=== PATIENT | male | born 1965 | race Caucasian/White ===

== ENCOUNTER → 2017-02-23 | Outpatient (CLI) | payer BC ==
--- NOTE | 2017-02-24 08:26 | XR ---
EXAMINATION TYPE: XR chest 2V DATE OF EXAM: 02/23/2017 3:24 PM COMPARISON: NONE TECHNIQUE: PA and lateral views submitted. HISTORY: Prostate cancer follow-up FINDINGS: The lungs are clear and there is no pneumothorax, pleural effusion, or focal pneumonia. Mild hypert rophic change of the spine IMPRESSION: 1. No acute process.
== END | disposition home or self-care (01) ==
LOC: RADXRYALE 15:11
PROVIDERS: ATTEND Urology
DX: C61 Malignant neoplasm of prostate (principal)
CPT/HCPCS: 71020

== ENCOUNTER → 2018-07-19 | Outpatient (CLI) | payer BC ==
--- NOTE | 2018-07-19 19:21 | US ---
EXAMINATION TYPE: US abdomen complete DATE OF EXAM: 07/19/2018 COMPARISON: NONE CLINICAL HISTORY: R93.5 Abn findings on imaging of abd region. lesion seen on liver and kidney, no sy mptoms EXAM MEASUREMENTS: Liver Length: 15.8 cm Gallbladder Wall: 0.3 cm CBD: 0.4 cm Spleen: 12.1 cm Right Kidney: 10.7 x 5.3 x 5.5 cm Left Kidney: 11.3 x 5.2 x 5.8 cm bowel gas limits study Pancreas: wnl Liver: intercostal imaging due to bowel gas, cystic areas seen, left lobe = 0.9cm, right posterior l obe = 1.7cm Gallbladder: wnl Evidence for sonographic Dozier's sign: no CBD: wnl Spleen: wnl Right Kidney: 1.8cm superior pole cyst, area sits so close to liver unable to officially determine i f cyst is on renal versus posterior liver Left Kidney: wnl Upper IVC: wnl Abd Aorta: wnl IMPRESSION: Hepatic and renal cysts. No evidence of renal obstruction. No gallstones or dilated ducts .
== END | disposition home or self-care (01) ==
LOC: RADUSMAIN 17:42
PROVIDERS: ATTEND Family Medicine
DX: K76.89 Other specified diseases of liver (principal); N28.1 Cyst of kidney, acquired
CPT/HCPCS: 76700

== ENCOUNTER → 2019-01-10 | Outpatient (CLI) | payer BC ==
--- NOTE | 2019-01-11 11:20 | XR ---
Right shoulder HISTORY: Right shoulder pain 3 views of the right shoulder Bone mineralization, joint spaces and alignment are maintained. Hypertrophic changes present at the a cromioclavicular joint. Right lung apex as visualized is normal. Distal acromion appears slightly brandt nturned. IMPRESSION: Acromioclavicular joint arthropathy, correlate for impingement. Shoulder MRI may be of be nefit.
== END | disposition home or self-care (01) ==
LOC: RADXRYALE 15:55
PROVIDERS: ATTEND Physician Assistant Medical
DX: M19.011 Primary osteoarthritis, right shoulder (principal)

== ENCOUNTER 2021-03-31 08:16 | Day surgery (SDC) | payer BC ==
[2021-03-27 09:04] VITALS: BMI 29.6
[~2021-03-31 08:16] MED LIST: LACTATED RINGERS 1,000 ML IV SCH
[2021-03-31 08:37] VITALS: TEMP 97.8
[2021-03-31] MEDS ORDERED: PROPOFOL 10 MG/ML 20 ML VIAL IV ONE (08:59)
[2021-03-31] MEDS ORDERED: LIDOCAINE 1% INJ 10MG/ML (20 ML MDV) ONE (08:59)
--- NOTE | 2021-03-31 09:30 | P.PCN ---
Date of Procedure: 03/31/21 Description of Procedure: BRIEF HISTORY: Patient is a 55-year-old male presenting for outpatient colonoscopy for history of colon polyps. Last colonoscopy 2016. No change in bowel habits, abdominal pain or family history of colon cancer. PROCEDURE PERFORMED: Colonoscopy with polypectomy. PREOPERATIVE DIAGNOSIS: Personal history of colon polyps, last colonoscopy 2015. ESTIMATED BLOOD LOSS: Minimal. IV sedation per Anesthesia. PROCEDURE: After informed consent was obtained, the patient, was brought into the endoscopy unit. IV sedation was administered by Anesthesia under continuous monitoring. Digital rectal examination was normal. Initially the Olympus CF-190 flexible video colonoscope was then inserted in the rectum, gradually advanced into the cecum without any difficulty. Careful examination was performed as the scope was gradually being withdrawn. Ileocecal valve and the appendiceal orifice were visualized and appeared normal. Prep was excellent. Mucosa of the cecum, ascending colon, transverse colon, descending colon, sigmoid colon, and rectum appeared normal. 2 diminutive rectal polyps one measuring 1 mm in size and one measuring 3 mm in size removed with cold forcep polypectomy. Retroflexion was performed in the rectum and no lesions were seen, grade internal hemorrhoids. The patient tolerated the procedure well. IMPRESSION: 2 diminutive polyps removed with cold forcep polypectomy from the rectum. Internal hemorrhoids. RECOMMENDATIONS: Findings of this examination were discussed with the patient and his family. Okay to resume diet. Okay to resume medications. Await pathology from polypectomies. If polyps are consistent with hyperplastic polyp can repeat endoscopy in 10 years, otherwise recommend 7 year interval.
[2021-03-31 09:38] VITALS: BP 119/80; PULSE 82; RESP 16
== END 2021-03-31 10:11 | disposition home or self-care (01) ==
LOC: ORWHC2ENDO 08:16
PROVIDERS: ATTEND Internal Medicine
DX: Z12.11 Encounter for screening for malignant neoplasm of colon (principal); K62.1 Rectal polyp; K64.8 Other hemorrhoids; Z79.1 Long term (current) use of non-steroidal anti-inflammatories (NSAID); Z79.899 Other long term (current) drug therapy; Z90.89 Acquired absence of other organs; Z98.890 Other specified postprocedural states; E78.5 Hyperlipidemia, unspecified; K21.9 Gastro-esophageal reflux disease without esophagitis; M19.90 Unspecified osteoarthritis, unspecified site; Z97.2 Presence of dental prosthetic device (complete) (partial)
CPT/HCPCS: 88305; 45380; J2001; J2704

== ENCOUNTER 2021-12-10 08:48 | Day surgery (SDC) | payer BC ==
[2021-12-08 15:38] VITALS: BMI 29.6
[2021-12-10 09:36] VITALS: RESP 16; TEMP 97.7
[2021-12-10] MEDS ORDERED: LIDOCAINE 1% (10MG/ML) FOR IV START INTRADERMA ONE (09:41)
[2021-12-10] MEDS ORDERED: PROPOFOL 10 MG/ML 20 ML VIAL IV ONE (09:47)
[2021-12-10] MEDS ORDERED: LIDOCAINE 1% INJ 10MG/ML (20 ML MDV) ONE (09:47)
--- NOTE | 2021-12-10 09:51 | P.GSHP ---
History of Present Illness H&P Date: 12/10/21 Chief Complaint: GERD Is a 56 room male presents today for EGD. He's had issues with GERD. Past Medical History Past Medical History: Cancer, GERD/Reflux, Hyperlipidemia Additional Past Medical History / Comment(s): hx prostate cancer History of Any Multi-Drug Resistant Organisms: None Reported Past Surgical History: Appendectomy, Hernia Repair, Prostate Surgery Additional Past Surgical History / Comment(s): PROSTATECTOMY Past Anesthesia/Blood Transfusion Reactions: No Reported Reaction Past Psychological History: No Psychological Hx Reported Smoking Status: Former smoker Past Alcohol Use History: Occasional Past Drug Use History: None Reported - Past Family History Mother Family Medical History: Cancer Additional Family Medical History / Comment(s): CA: bladder Father Family Medical History: No Reported History Additional Family Medical History / Comment(s): passed after accident in 1984 Medications and Allergies Home Medications Medication Instructions Recorded Confirmed Type Fenofibrate [Tricor] 160 mg PO DAILY 01/29/16 12/10/21 History Pravastatin Sodium 80 mg PO DAILY 03/27/21 12/10/21 History Allergies Allergy/AdvReac Type Severity Reaction Status Date / Time No Known Allergies Allergy Verified 12/10/21 09:34 Surgical - Exam Vital Signs Temp Pulse Resp BP Pulse Ox 97.7 F 74 16 147/95 94 L 12/10/21 09:33 12/10/21 09:33 12/10/21 09:33 12/10/21 09:33 12/10/21 09:33 - General well developed, well nourished, no distress - Eyes PERRL - ENT normal pinna - Neck no masses - Respiratory normal expansion - Cardiovascular Rhythm: regular - Abdomen Abdomen: soft Assessment and Plan Assessment: GERD. We'll perform EGD.
--- NOTE | 2021-12-10 09:59 | P.OP ---
Date of Procedure: 12/10/21 Preoperative Diagnosis: GERD Postoperative Diagnosis: Mild antral gastritis Small sliding hiatal hernia Procedure(s) Performed: EGD Anesthesia: MAC Surgeon: Imer Gutierres Pathology: other (Antrum) Condition: stable Disposition: PACU Description of Procedure: Patient's placed on the endoscopy table in the lateral position. He received IV sedation. The gastroscope placed oropharynx passed in the esophagus and stomach. Scope was then placed through the pylorus. First and second portion of the duodenum appeared minimally inflamed. A biopsies performed.. Scope was then brought back the antrum this. Mildly inflamed. The scope was then retroflexed and the remainder the stomach appeared normal. The GE junction was at 47 is. The patient had a small sliding hiatal hernia. The distal esophagus appeared minimally inflamed. Biopsies performed. The proximal esophagus appeared normal. Scope was withdrawn for patient. The patient is minimal findings of GERD. Patient was scheduled for a HIDA scan to evaluate for possible biliary dysfunction.
[2021-12-10 10:17] VITALS: BP 130/83; PULSE 71
--- NOTE | 2021-12-10 12:57 | NM ---
EXAMINATION TYPE: NM hepatobiliary w CCK DATE OF EXAM: 12/10/2021 COMPARISON: Ultrasound abdomen 07/19/2018 HISTORY: Indigestion TECHNIQUE: After the intravenous administration of 4.94 mCi Tc 99m Mebrofenin hepatobiliary scintigra phy is performed. Immediate images post injection. FINDINGS: There is satisfactory initial accumulation of tracer by the liver. The gallbladder is visualized on initial image. The small bowel activity is noted within 8 minutes. At one hour CCK was administered , patient was injected with 2.25 mcg of Kinevac, and gallbladder ejection fraction is calculated at 9 2 %, above the upper limit of the normal range. Therefore there is no scintigraphic evidence of cyst ic or common bile duct obstruction to suggest acute cholecystitis or gallbladder dyskinesia. IMPRESSION: Findings could represent hyperdynamic gallbladder
== END 2021-12-10 10:35 | disposition home or self-care (01) ==
LOC: ORWHC2ENDO 08:48
PROVIDERS: ATTEND Surgery
DX: K21.00 Gastro-esophageal reflux disease with esophagitis, without bleeding (principal); K29.70 Gastritis, unspecified, without bleeding; K44.9 Diaphragmatic hernia without obstruction or gangrene; E78.5 Hyperlipidemia, unspecified; Z85.46 Personal history of malignant neoplasm of prostate; Z98.890 Other specified postprocedural states; Z90.49 Acquired absence of other specified parts of digestive tract; Z90.79 Acquired absence of other genital organ(s); Z87.891 Personal history of nicotine dependence; Z80.52 Family history of malignant neoplasm of bladder; Z79.899 Other long term (current) drug therapy
CPT/HCPCS: 88305; 78227; 43239; A9537; J2805; J2001; J2704

== ENCOUNTER 2021-12-25 07:22 | Day surgery (SDC) | payer BC ==
[2021-12-22 13:31] VITALS: BMI 29.6
[~2021-12-25 07:22] MED LIST changes: +ACETAMINOPHEN TAB 500 MG TAB PO PRN; +DEXAMETHASONE SOD PHOSPHATE 4 MG/ML 1 ML VIAL IV ONE; +HEPARIN SODIUM,PORCINE/PF 5,000 UNIT/0.5 ML SYRINGE SQ PRN; +LIDOCAINE 1% (10MG/ML) FOR IV START INTRADERMA PRN; +MIDAZOLAM 2 MG/2 ML VIAL IV PRN; +ONDANSETRON 4 MG/2 ML VIAL IVP ONE
--- NOTE | 2021-12-25 08:54 | P.GSHP ---
History of Present Illness H&P Date: 12/25/21 Chief Complaint: Right upper quadrant pain This is a 56-year-old male who second with right quadrant pain. His recent HIDA scan shows evidence of a hyperdynamic gallbladder. Patient is in today for laparoscopic cholecystectomy. Past Medical History Past Medical History: Cancer, GERD/Reflux, Hyperlipidemia Additional Past Medical History / Comment(s): hx prostate cancer History of Any Multi-Drug Resistant Organisms: None Reported Past Surgical History: Appendectomy, Hernia Repair, Prostate Surgery Additional Past Surgical History / Comment(s): PROSTATECTOMY. EGD-12/10/21 Past Anesthesia/Blood Transfusion Reactions: No Reported Reaction Smoking Status: Former smoker - Past Family History Mother Family Medical History: Cancer Additional Family Medical History / Comment(s): CA: bladder Father Family Medical History: No Reported History Additional Family Medical History / Comment(s): passed after accident in 1984 Medications and Allergies Home Medications Medication Instructions Recorded Confirmed Type Fenofibrate [Tricor] 160 mg PO DAILY 01/29/16 12/25/21 History Pravastatin Sodium 80 mg PO DAILY 03/27/21 12/25/21 History DULoxetine HCL [Cymbalta] 30 mg PO HS 12/22/21 12/25/21 History DULoxetine HCL [Cymbalta] 60 mg PO DAILY 12/22/21 12/25/21 History Ergocalciferol [Vitamin D2 (1250 1,250 mcg PO MARINELLI 12/22/21 12/25/21 History Mcg = [id number] Iu)] Allergies Allergy/AdvReac Type Severity Reaction Status Date / Time No Known Allergies Allergy Verified 12/25/21 07:45 Surgical - Exam Vital Signs Temp Pulse Resp BP Pulse Ox 98 F 91 16 148/93 94 L 12/25/21 07:42 12/25/21 07:42 12/25/21 07:42 12/25/21 07:42 12/25/21 07:42 - General well developed, well nourished, no distress - Eyes PERRL - ENT normal pinna - Neck no masses - Respiratory normal expansion - Cardiovascular Rhythm: regular - Abdomen Abdomen: soft, non tender Assessment and Plan Assessment: Right upper quadrant pain Chronic cholecystitis Hyperdynamic gallbladder We'll perform laparoscopic cholecystectomy
[2021-12-25] MEDS ORDERED: MIDAZOLAM 2 MG/2 ML VIAL ONE (09:01)
[2021-12-25] MEDS ORDERED: GLYCOPYRROLATE 0.2 MG/ML 2 ML VIAL ONE (09:01)
[2021-12-25] MEDS ORDERED: fentaNYL (PF) 50 MCG/ML 2 ML AMP ONE (09:01)
[2021-12-25] MEDS ORDERED: SUCCINYLCHOLINE CHLORIDE VIAL 200 MG/10 ML VIAL IV ONE (09:01)
[2021-12-25] MEDS ORDERED: PROPOFOL 10 MG/ML 20 ML VIAL IV ONE (09:01)
[2021-12-25] MEDS ORDERED: NEOSTIGMINE 1 MG/ML 10 ML VIAL ONE (09:01)
[2021-12-25] MEDS ORDERED: LIDOCAINE 1% INJ 10MG/ML (20 ML MDV) ONE (09:01)
[2021-12-25] MEDS ORDERED: KETAMINE 10 MG/ML 20 ML VIAL ONE (09:01)
[2021-12-25] MEDS ORDERED: ROCURONIUM 10 MG/ML (5 ML VIAL) IV ONE (09:01)
[2021-12-25] MEDS ORDERED: BUPIVACAIN-EPI 0.25%-1:200,000 30 ML VIAL SQ ONE ×2 (09:06→09:19)
[2021-12-25] MEDS: HYDROmorphone 0.5 MG/0.5 ML SYRINGE IVP PRN ×4 (09:43→10:26)
--- NOTE | 2021-12-25 09:44 | P.OP ---
Date of Procedure: 12/25/21 Preoperative Diagnosis: Chronic cholecystitis Postoperative Diagnosis: Chronic cholecystitis Procedure(s) Performed: Laparoscopic cholecystectomy Anesthesia: JULIANA Surgeon: Imer Gutierres Estimated Blood Loss (ml): 5 Pathology: other (Gallbladder) Condition: stable Disposition: PACU Description of Procedure: The patient was placed on the operating table. The patient received a general endotracheal tube anesthesia. The patients abdomen was prepped and draped in the usual sterile fashion. Through an infraumbilical stab incision, the fascia of the anterior abdominal wall was grasped with a pair of Kochers and then the Veress needle was placed in the peritoneal cavity. Position of the Veress needle was confirmed with positive drop test. The abdomen was then insufflated. After adequate insufflation, the 10 mm trocar was placed in the peritoneal cavity. Following this the laparoscope was placed in the peritoneal cavity. The patient was placed in the head-up, right side up position and then a 5 mm trocar was placed in the right lateral and right subcostal position under direct visualization. A 8 mm trocar was placed in the epigastric position. The gallbladder was grasped in the fundus and infundibulum. Traction on the gallbladder was placed in the lateral and the cephalad positions. The triangle of Calot was visualized.. The cystic duct was bluntly dissected until the union of the cystic duct and common bile duct was seen. A critical view of safety was achieved. The cystic duct was then divided and sealed with the Harmonic scissors. A PDS Endoloop was then placed throughout the cystic duct stump. The cystic artery divided and sealed with the Harmonic scissors. The gallbladder was then removed from the liver bed using Harmonic scissors. The gallbladder was then extracted through the epigastric port site. Operative field was checked for any bleeding spots and Harmonic scissors was used to coagulate the liver bed. The abdomen was irrigated. The trocars were removed. The skin was closed using interrupted 3-0 Vicryl suture. Dermabond dressing were applied. The patient tolerated the procedure well.
[2021-12-25 09:48] VITALS: TEMP 97.2
[2021-12-25] MEDS ORDERED: KETOROLAC 15 MG/ML 1 ML VIAL IVP ONE (10:15)
[2021-12-25] MEDS ORDERED: HYDROmorphone 0.5 MG/0.5 ML SYRINGE IVP ONE ×2 (11:10)
[2021-12-25 11:22] VITALS: RESP 16
[2021-12-25 12:14] VITALS: BP 120/82; PULSE 74
== END 2021-12-25 12:30 | disposition home or self-care (01) ==
LOC: OR 07:22
PROVIDERS: ATTEND Surgery
DX: K81.1 Chronic cholecystitis (principal); K21.9 Gastro-esophageal reflux disease without esophagitis; E78.5 Hyperlipidemia, unspecified; Z85.46 Personal history of malignant neoplasm of prostate; Z90.49 Acquired absence of other specified parts of digestive tract; Z90.79 Acquired absence of other genital organ(s); Z80.52 Family history of malignant neoplasm of bladder; Z87.891 Personal history of nicotine dependence; Z79.899 Other long term (current) drug therapy
CPT/HCPCS: 47562; 88304; J2250; J0330; J1100; J2710; J0690; J2405; J2001; J3010; J1885; J2704; J1170; J1644

== ENCOUNTER → 2022-03-18 | Outpatient (CLI) | payer BC ==
[2022-03-18 16:47] VITALS: BMI 30.3
== END ==
LOC: DBWHC3 14:56
PROVIDERS: ATTEND Physician Assistant Medical
DX: E11.9 Type 2 diabetes mellitus without complications (principal); Z87.891 Personal history of nicotine dependence
CPT/HCPCS: G0108 ×3

== ENCOUNTER → 2023-01-27 | Outpatient (CLI) | payer BC ==
--- NOTE | 2023-01-27 15:32 | XR ---
EXAMINATION TYPE: XR knee complete RT DATE OF EXAM: 01/27/2023 COMPARISON: NONE HISTORY: Pain TECHNIQUE: Three views are submitted. FINDINGS: Joint spaces are preserved. Osseous structures are intact. No acute fracture seen. There is a supr apatellar small bursal fluid collection. IMPRESSION: 1. No acute fracture or dislocation. Small suprapatellar bursal fluid collection can be associated w ith internal derangement knee. Correlate clinically.
== END | disposition home or self-care (01) ==
LOC: RADXRYALE 15:01
PROVIDERS: ATTEND Physician Assistant
DX: M25.561 Pain in right knee (principal)

== ENCOUNTER 2023-03-23 22:03 | Emergency (ER) | payer BC ==
[2023-03-23] MEDS ORDERED: HYDROmorphone 1 MG/ML 1 ML SYRINGE IVP STA (23:10)
--- NOTE | 2023-03-23 23:39 | ED ---
Fall HPI - General Chief Complaint: Fall Stated Complaint: Back Pain Source: patient, EMS Mode of arrival: EMS - History of Present Illness Initial Comments: 57-year-old with a history of back problems presents to the ED with chief complaint of right hip pain. She states that he was attempting to sit into a golf cart when his right leg straightened out. States that this caused him to be unable to properly sit into the golf cart and he rolled onto the ground. Denies any injury due to a fall however states that since his leg straightened out has had right hip pain that is worse than usual. Denies incontinence. Denies saddle anesthesia. Patient notes that he has an MRI scheduled for tomorrow due to known history of this. Denies chest pain or shortness of breath. No other complaints. - Related Data Home Medications Medication Instructions Recorded Confirmed Fenofibrate [Tricor] 160 mg PO DAILY 01/29/16 12/25/21 Pravastatin Sodium 80 mg PO DAILY 03/27/21 12/25/21 DULoxetine HCL [Cymbalta] 30 mg PO HS 12/22/21 12/25/21 DULoxetine HCL [Cymbalta] 60 mg PO DAILY 12/22/21 12/25/21 Ergocalciferol [Vitamin D2 (1250 1,250 mcg PO MARINELLI 12/22/21 12/25/21 Mcg = [id number] Iu)] Previous Rx's Medication Instructions Recorded Acetaminophen Tab [Tylenol] 650 mg PO Q6H #30 tab 12/25/21 Docusate [Colace] 100 mg PO BID #20 capsule 12/25/21 Ibuprofen [Motrin] 600 mg PO Q6HR PRN #40 tab 12/25/21 oxyCODONE HCL [OxyIR] 5 mg PO Q6H PRN 3 Days #10 tab 12/25/21 Lidocaine 5% Patch [Lidoderm 5% 1 patch TOPICAL DAILY #7 patch 03/24/23 Patch] methocarbamoL [Robaxin] 500 mg PO TID PRN #15 tab 03/24/23 Allergies Allergy/AdvReac Type Severity Reaction Status Date / Time No Known Allergies Allergy Verified 03/23/23 22:11 Review of Systems ROS Statement: Those systems with pertinent positive or pertinent negative responses have been documented in the HPI. ROS Other: All systems not noted in ROS Statement are negative. Past Medical History Past Medical History: Cancer, GERD/Reflux, Hyperlipidemia Additional Past Medical History / Comment(s): hx prostate cancer History of Any Multi-Drug Resistant Organisms: None Reported Past Surgical History: Appendectomy, Hernia Repair, Prostate Surgery Additional Past Surgical History / Comment(s): PROSTATECTOMY. EGD-12/10/21 Past Anesthesia/Blood Transfusion Reactions: No Reported Reaction Past Psychological History: No Psychological Hx Reported Smoking Status: Former smoker - Past Family History Mother Family Medical History: Cancer Additional Family Medical History / Comment(s): CA: bladder Father Family Medical History: No Reported History Additional Family Medical History / Comment(s): passed after accident in 1984 General Exam Limitations: no limitations General appearance: alert, in distress Head exam: Present: atraumatic Eye exam: Present: normal appearance ENT exam: Present: normal exam Neck exam: Present: other (No Midline cervical spinal tenderness to palpation) Respiratory exam: Present: normal lung sounds bilaterally Cardiovascular Exam: Present: regular rate, normal rhythm GI/Abdominal exam: Present: soft Extremities exam: Present: tenderness (Reducible pain to palpation of the right lateral hip and right lumbar paraspinal area.), other (Strength and sensation equal and intact in bilateral upper and lower extremities.) Back exam: Present: other (No midline thoracic or lumbar spinal tenderness to palpation. ) Neurological exam: Present: alert, oriented X3 Course Vital Signs 03/23/23 22:06 Temperature 97.8 F Pulse Rate 84 Respiratory 20 Rate Blood Pressure 141/88 O2 Sat by Pulse 98 Oximetry Medical Decision Making - Medical Decision Making Was pt. sent in by a medical professional or institution (, PA, RECEIVING CLERK, urgent care, hospital, or senior living...) When possible be specific @ -No Did you speak to anyone other than the patient for history (EMS, parent, family, police, friend...)? What history was obtained from this source @ -No Did you review nursing and triage notes (agree or disagree)? Why? @ -I reviewed and agree with nursing and triage notes Were old charts reviewed (outside hosp., previous admission, EMS record, old EKG, old radiological studies, urgent care reports/EKG's, senior living records)? Report findings @ -No old charts were reviewed Differential Diagnosis (chest pain, altered mental status, abdominal pain women, abdominal pain men, vaginal bleeding, weakness, fever, dyspnea, syncope, headache, dizziness, GI bleed, back pain, seizure, CVA, palpatations, mental health, musculoskeletal)? @ -Differential Back Pain: Strain, zoster, cauda equina syndrome, epidural abscess, vertebral osteomyelitis, discitis, fracture, subluxation, disc herniation, DJD, spinal stenosis, dissection, AAA, pancreatitis, peptic ulcer disease, pyelonephritis, kidney stone, this is not meant to be an all-inclusive list. EKG interpreted by me (3pts min.). @ -None X-rays interpreted by me (1pt min.). @ -None done CT interpreted by me (1pt min.). @ -None done U/S interpreted by me (1pt. min.). @ -None done What testing was considered but not performed or refused? (CT, X-rays, U/S, labs)? Why? @ -Imaging was considered however at this time patient has no alarming symptoms and denies any new injury. Additionally patient states that he has an MRI scheduled tomorrow. What meds were considered but not given or refused? Why? @ -None Did you discuss the management of the patient with other professionals (professionals i.e. , PA, RECEIVING CLERK, lab, RT, psych nurse, rn social services, induction coordination engineer, teacher, chief legal officer, pillowcase maker)? Give summary @ -No Was smoking cessation discussed for >3mins.? @ -No Was critical care preformed (if so, how long)? @ -No Were there social determinants of health that impacted care today? How? (Homelessness, low income, unemployed, alcoholism, drug addiction, transportation, low edu. Level, literacy, decrease access to med. care, custodial, rehab)? @ -No Was there de-escalation of care discussed even if they declined (Discuss DNR or withdrawal of care, Hospice)? DNR status @ -No What co-morbidities impacted this encounter? (DM, HTN, Smoking, COPD, CAD, Cancer, CVA, ARF, Chemo, Hep., AIDS, mental health diagnosis, sleep apnea, morbid obesity)? @ -None Was patient admitted / discharged? Hospital course, mention meds given and route, prescriptions, significant lab abnormalities, going to OR and other pertinent info. @ -Discharge. Patient had pain well controlled with Dilaudid. Additionally given Norflex and a lidocaine patch. Able to ambulate without significant difficulty. Advised to follow with orthopedics as scheduled. Patient discharged in stable condition. Discussed return precautions patient verbalized agreement. Undiagnosed new problem with uncertain prognosis? @ -No rug Therapy requiring intensive monitoring for toxicity (Heparin, Nitro, Insulin, Cardizem)? @ -No ere any procedures done? @ -No iagnosis/symptom? @ -Hip pain Acute, or Chronic, or Acute on Chronic? @ -Acute on chronic. Uncomplicated (without systemic symptoms) or Complicated (systemic symptoms)? @ -Uncomplicated Side effects of treatment? @ -No xacerbation, Progression, or Severe Exacerbation? @ -No oses a threat to life or bodily function? How? (Chest pain, USA, MS, pneumonia, PE, COPD, DKA, ARF, appy, cholecystitis, CVA, Diverticulitis, Homicidal, Suicidal, threat to staff... and all critical care pts) @ -No Disposition Clinical Impression: Hip pain Disposition: HOME SELF-CARE Condition: Good Prescriptions: Lidocaine 5% Patch [Lidoderm 5% Patch] 1 patch TOPICAL DAILY #7 patch methocarbamoL [Robaxin] 500 mg PO TID PRN #15 tab PRN Reason: muscle spasms Is patient prescribed a controlled substance at d/c from ED?: No Referrals: Rosey Castro PAC [Primary Care Provider] - 1-2 days Time of Disposition: 01:00
[2023-03-23] MEDS ORDERED: ORPHENADRINE 30 MG/ML 2 ML VIAL IVP STA (23:52)
[2023-03-24] MEDS ORDERED: LIDOCAINE 5% PATCH TOPICAL STA (00:35)
[2023-03-24 01:18] VITALS: BP 140/88; PULSE 85; RESP 18; TEMP 98.2
[2023-03-24] MEDS ORDERED: LIDOCAINE 5% PATCH TOPICAL SCH (09:00)
== END 2023-03-24 01:17 | disposition home or self-care (01) ==
LOC: EC 22:03
DX: M25.551 Pain in right hip (principal); K21.9 Gastro-esophageal reflux disease without esophagitis; E78.5 Hyperlipidemia, unspecified; Z87.891 Personal history of nicotine dependence; Z79.899 Other long term (current) drug therapy; W18.30XA Fall on same level, unspecified, initial encounter
CPT/HCPCS: 99284; 96374; 96375; J1170

== ENCOUNTER → 2023-04-11 | Outpatient (CLI) | payer BC ==
[2023-04-11 16:59] LABS: INR 0.9 (<1.2); Partial Thromboplastin Time 23.8 sec (22.0-30.0)
[2023-04-12 02:23] LABS: Basophils # (A) 0.06 X 10*3/uL (0.00-0.10); Basophils % (A) 0.8 %; Eosinophils % (A) 2.7 %; HCT 44.2 % (39.6-50.0); HGB 14.4 d/dL (12.0-15.0); Lymphocytes # (A) 1.92 X 10*3/uL (0.90-5.00); Lymphocytes % (A) 25.6 %; MCHC 32.6 d/dL (32.0-37.0); MCV 92.1 FL (80.0-97.0); Monocytes # (A) 0.63 X 10*3/uL (0.20-1.00); Monocytes % (A) 8.4 %; NRBC Per 100 WBC 0 X 10*3/uL (0.00-0.01); Neutrophils # (A) 4.64 X 10*3/uL (1.80-7.70); Neutrophils % (A) 61.8 %; Platelet Count 298 X 10*3/uL (140-440)
[2023-04-12 02:32] LABS: Calcium 10.2 mg/dL (8.7-10.3); Carbon Dioxide 25.8 mmol/L (21.6-31.8); Chloride 103 mmol/L (96-109); Glucose 94 mg/dL (70-110); Potassium 4.4 mmol/L (3.5-5.5); Sodium 141 mmol/L (135-145)
== END | disposition home or self-care (01) ==
LOC: LABWHC1 15:45
PROVIDERS: ATTEND Orthopaedic Surgery Orthopaedic Surgery of the Spine
DX: Z01.812 Encounter for preprocedural laboratory examination (principal); M48.061 Spinal stenosis, lumbar region without neurogenic claudication
CPT/HCPCS: 36415; 80048; 85025; 85610; 85730; 86850; 86900; 86901

== ENCOUNTER → 2023-04-15 | Outpatient (CLI) | payer BC ==
--- NOTE | 2023-04-15 13:01 | XR ---
EXAMINATION TYPE: XR chest 2V DATE OF EXAM: 04/15/2023 COMPARISON: 02/23/2017 TECHNIQUE: PA and lateral views submitted. HISTORY: Presurgical FINDINGS: The lungs are clear and there is no pneumothorax, pleural effusion, or focal pneumonia. Heart size normal and no overt failure. Osseous structures demonstrate hypertrophic and degenerative changes of the spine. Right-sided AC joint arthropathy. IMPRESSION: 1. No acute process.
== END | disposition home or self-care (01) ==
LOC: RADXRMAIN 12:25
PROVIDERS: ATTEND Orthopaedic Surgery Orthopaedic Surgery of the Spine
DX: Z01.818 Encounter for other preprocedural examination (principal)
CPT/HCPCS: 71046

== ENCOUNTER 2023-04-18 08:46 | Day surgery (SDC) | payer BC ==
[2023-04-11 16:59] LABS: INR 0.9 (<1.2); Partial Thromboplastin Time 23.8 sec (22.0-30.0)
[2023-04-12 02:23] LABS: Basophils # (A) 0.06 X 10*3/uL (0.00-0.10); Basophils % (A) 0.8 %; Eosinophils % (A) 2.7 %; HCT 44.2 % (39.6-50.0); HGB 14.4 d/dL (12.0-15.0); Lymphocytes # (A) 1.92 X 10*3/uL (0.90-5.00); Lymphocytes % (A) 25.6 %; MCHC 32.6 d/dL (32.0-37.0); MCV 92.1 FL (80.0-97.0); Monocytes # (A) 0.63 X 10*3/uL (0.20-1.00); Monocytes % (A) 8.4 %; NRBC Per 100 WBC 0 X 10*3/uL (0.00-0.01); Neutrophils # (A) 4.64 X 10*3/uL (1.80-7.70); Neutrophils % (A) 61.8 %; Platelet Count 298 X 10*3/uL (140-440)
[2023-04-12 02:32] LABS: Calcium 10.2 mg/dL (8.7-10.3); Carbon Dioxide 25.8 mmol/L (21.6-31.8); Chloride 103 mmol/L (96-109); Glucose 94 mg/dL (70-110); Potassium 4.4 mmol/L (3.5-5.5); Sodium 141 mmol/L (135-145)
[~2023-04-18 08:46] MED LIST changes: -ACETAMINOPHEN TAB 500 MG TAB PO PRN; -HEPARIN SODIUM,PORCINE/PF 5,000 UNIT/0.5 ML SYRINGE SQ PRN; +HYDROmorphone 0.5 MG/0.5 ML SYRINGE IVP PRN; -MIDAZOLAM 2 MG/2 ML VIAL IV PRN; +droPERidol 5 MG/2 ML VIAL IVP PRN
[2023-04-18] MEDS ORDERED: LACTATED RINGERS 400 ML IV ONE (09:13)
[2023-04-18 09:16] VITALS: TEMP 97
[2023-04-18] MEDS ORDERED: SUCCINYLCHOLINE CHLORIDE 200 MG/10 ML VIAL IV ONE (09:58)
[2023-04-18] MEDS ORDERED: HYDROmorphone (PF) 1 MG/ML ONE (09:58)
[2023-04-18] MEDS ORDERED: MIDAZOLAM 2 MG/2 ML VIAL ONE (09:58)
[2023-04-18] MEDS ORDERED: PROPOFOL 10 MG/ML 20 ML VIAL IV ONE (09:58)
[2023-04-18] MEDS ORDERED: PHENYLEPHRINE 10 MG/ML VIAL ONE (09:58)
[2023-04-18] MEDS ORDERED: fentaNYL (PF) 50 MCG/ML 2 ML AMP ONE (09:58)
[2023-04-18] MEDS ORDERED: NEOSTIGMINE 1 MG/ML 10 ML VIAL ONE (09:58)
[2023-04-18] MEDS ORDERED: LIDOCAINE 2% INJ 20 MG/ML (2 ML VIAL) ONE (09:58)
[2023-04-18] MEDS ORDERED: KETAMINE 10 MG/ML 20 ML VIAL ONE (09:58)
[2023-04-18] MEDS ORDERED: GLYCOPYRROLATE 0.2 MG/ML 2 ML VIAL ONE (09:58)
[2023-04-18] MEDS ORDERED: ROCURONIUM 10 MG/ML (5 ML VIAL) IV ONE (09:58)
[2023-04-18] MEDS ORDERED: BUPIVACAINE (PF) 0.25% 30 ML VIAL SQ ONE ×2 (10:01→10:32)
[2023-04-18] MEDS ORDERED: GELATIN SPONGE,ABSORB (SMALL) 1 EACH SPONGE TOPICAL ONE ×2 (10:01→10:34)
[2023-04-18] MEDS ORDERED: LIDOCAINE 2%-EPI 1:100,000 20 ML VIAL SQ ONE ×2 (10:02→10:32)
[2023-04-18] MEDS ORDERED: THROMBIN (BOVINE) 5,000 UNIT VIAL TOPICAL ONE ×2 (10:02→10:34)
[2023-04-18] MEDS ORDERED: SODIUM CHLORIDE 0.9% 100 ML BAG ONE (10:15)
[2023-04-18] MEDS ORDERED: ceFAZolin 1,000 MG VIAL ONE (10:15)
[2023-04-18] MEDS ORDERED: SODIUM CHLORIDE 0.9% 50 ML with ceFAZolin 2,000 MG IV ONE ×2 (10:15)
[2023-04-18] MEDS ORDERED: methylPREDNISolone ACETATE 40 MG/ML 1 ML VIAL MISCELLANE ONE ×2 (10:34→11:12)
[2023-04-18] MEDS ORDERED: LACTATED RINGERS 1,000 ML IV ONE (10:58)
--- NOTE | 2023-04-18 11:15 | FL ---
EXAMINATION TYPE: FL guidance operating room DATE OF EXAM: 04/18/2023 HISTORY: Fluoroscopy time Total dose area product (DAP) in uGy*m?, mGy*cm? (or similar): 0.2434 IMPRESSION: 1. Fluoroscopy time.
--- NOTE | 2023-04-18 11:17 | XR ---
EXAM TYPE: LUMBAR SPINE X RAY SERIES COMPARISON: NONE HISTORY: Intraoperative localization TECHNIQUE: 3 views are submitted. FINDINGS: Limited resolution views of the lower and mid lumbar spine demonstrate surgical instruments posterior to the vertebral column. There is a grade 1 anterior listhesis of the lowest lumbar segment. Multile jac degenerative disc disease. IMPRESSION: 1. See above
[2023-04-18] MEDS ORDERED: CYCLOBENZAPRINE 10 MG TAB PO PRN (11:32)
[2023-04-18] MEDS ORDERED: diazePAM 5 MG TAB PO PRN (11:32)
[2023-04-18] MEDS ORDERED: ACETAMINOPHEN TAB 500 MG TAB PO PRN (11:32)
[2023-04-18] MEDS ORDERED: HYDROcodone/APAP 5-325MG 1 EACH TAB PO PRN (11:32)
[2023-04-18] MEDS ORDERED: BENZOCAINE/MENTHOL LOZENG 1 EACH LOZENGE MUCOUS MEM PRN (11:32)
[2023-04-18] MEDS ORDERED: HYDROmorphone 1 MG/ML 1 ML SYRINGE IVP PRN (11:32)
[2023-04-18] MEDS ORDERED: KETOROLAC 15 MG/ML 1 ML VIAL IVP PRN (11:32)
[2023-04-18] MEDS ORDERED: ONDANSETRON 4 MG/2 ML VIAL IVP PRN (11:32)
--- NOTE | 2023-04-18 11:44 | P.OP ---
Date of Procedure: 04/18/23 Preoperative Diagnosis: Herniated nucleus pulposis L3 4, spinal stenosis L3 4, lower extremity radiculopathy, lower extremity weakness Postoperative Diagnosis: Same Anesthesia: GETA Pathology: none sent Condition: stable Disposition: PACU Description of Procedure: BRIEF OPERATIVE NOTE Preoperative Diagnosis:Herniated nucleus pulposis L3 4, spinal stenosis L3 4, lower extremity radiculopathy, lower extremity weakness Postoperative Diagnosis:Herniated nucleus pulposis L3 4, spinal stenosis L3 4, lower extremity radiculopathy, lower extremity weakness Procedure: Laminectomy and decompression L3 4 Discectomy for decompression L3 4 Partial medial facetectomy and foraminotomy L3 4 Use of fluoroscopic guidance Surgeon: Dr. Tuttle Infant Caregiver: Qasim Anthony is present throughout the entire the case persistence during positioning, dissection, exposure, visualization, and all crucial elements of the case as well as closure. Anesthesia: General anesthesia per Dr. Bynum Estimated blood loss:approximately 50 mL Complications: None apparent Components implanted: Disposition: To recovery room in good stable condition. OPERATIVE INDICATIONS The patient has been having issues in their lower back and lower extremities. He isn't having significant issues particularly over his right lower extremity radiculopathy right thigh over to 4 distribution. Patient is found have severe stenosis L3 4 with herniation and compression of the nerves at that level caudally well with his low back and lower extremity symptoms particularly his new symptoms at his right and left lower extremity. Patient has a long history of issues with his back and has a history of spondylolisthesis L5-S1. He feels that this new pain is different for him appear to stem from the L3 4 level. A new disc herniation. The patient has been through conservative treatment. We discussed the possibility of treating the new herniation alone at L3 4 revision possibly doing decompression and possibly fusion addressing the listhesis and changes at his lower lumbar spine L5-S1. We felt that he could do well with decompression laminectomy discectomy at the new issues at L3 4. We discussed various treatment options including surgery, and the patient wishes to proceed with surgery We discussed the risk, patient's alternatives and benefits of neri maik including but not limited to, risk of bleeding risk of infection, risk of need for further surgery, risk of decreased, loss of motion, loss of function, nerve damage, paralysis, heart attack, blindness and . OPERATIVE SUMMARY After discussing all the risks, patient alternatives and benefits at length, the patient elected to proceed with surgical intervention, signed informed consent, and presented for their procedure. The patient was seen and examined in the preoperative holding area and the surgical site was marked. The patient was given antibiotics and brought to the operating room. The patient was sedated and intubated by anesthesia in standard fashion. The patient was positioned on to the operating room table in a prone position on the appropriate frame which was well-padded and well molded. We were careful to pad any bony prominences and pressure points. We were careful to maintain the patient's cervical spine and good neutral alignment and position throughout. The patient was prepped and draped in a normal standard fashion. An appropriate timeout and keystone protocol performed. We were able to proceed with the surgery. Fluoroscopy was utilized to establish the appropriate level. The local wound area was infiltrated with local anesthetic. An incision was made at the midline longitudinally over the appropriate levels at L3 4. Dissection was taken down subcutaneously to the level of the fascia which was split midline. Dissection was taken over the lamina. Intraoperative fluoroscopy was taken which showed a marker at the appropriate level at L3 4. With the appropriate level positively confirmed, we were able to proceed with laminectomy. The wound was copiously irrigated and suctioned dry as had been done periodically throughout the case. I performed a laminectomy with a combination of curettes and a high-speed bur and Kerrison rongeurs. A small medial facetectomy was performed again further access. A partial foraminotomy was also performed. Portions of the ligamentum flavum were taken down to expose the dura and traversing nerve root. I was able to mobilize the traversing nerve root and gain access to the disc space. Note was made of obvious compression from the disc. There is also a large amount of fatty tissue causing further compression dorsally. I was able to remove the significant lipomatous tissue to aid the decompression. Protecting the soft tissue structures, a small annulotomy was established. I was able to perform discectomy and remove any extruded disc fragments and any loose fragments from within the disc itself. There is some severe disc desiccation noted. I tried to preserve the disc annulus that appeared stable, though much of the disc was evacuated and lost.. There were no further extruded fragments noted. There is no evidence of dural tear or leak. Good hemostasis maintained. The wound was copiously irrigated and suctioned dry. Good decompression and discectomy was noted. We were able to proceed with closure. The fascia was closed for a watertight closure. The subcuticular tissue was closed with absorbable suture. The wound was cleaned and dried and dressed with the appropriate dressing. The drapes were broken down. The patient was gently rolled back onto their hospital bed being careful to maintain their cervical spine and good neutral alignment and position. They were woken up by anesthesia, extubated, and brought to the recovery room in good stable condition. The patient will be admitted to the hospital for observation and for appropriate postoperative care, medical management and monitoring. We will continue to follow them closely about the postoperative course.
[2023-04-18] MEDS ORDERED: SODIUM CHLORIDE 0.9% 1,000 ML IV SCH (11:45)
[2023-04-18 12:19] VITALS: RESP 16
[2023-04-18 13:09] VITALS: BP 112/74; PULSE 94
[2023-04-18] MEDS ORDERED: DULoxetine HCL 30 MG CAPSULE.DR PO SCH (21:00)
[2023-04-19] MEDS ORDERED: DULoxetine HCL 60 MG CAPSULE.DR PO SCH (09:00)
[2023-04-19] MEDS ORDERED: PRAVASTATIN SODIUM 80 MG TAB PO SCH (09:00)
[2023-04-19] MEDS ORDERED: LOSARTAN 50 MG TAB PO SCH (09:00)
[2023-04-19] MEDS ORDERED: FENOFIBRATE 160 MG TAB PO SCH (09:00)
[2023-04-24] MEDS ORDERED: ERGOCALCIFEROL 1,250 MCG (50,000 IU) CAPSULE PO SCH (09:00)
== END 2023-04-18 13:45 | disposition home or self-care (01) ==
LOC: OR 08:46
PROVIDERS: ATTEND Orthopaedic Surgery Orthopaedic Surgery of the Spine
DX: M51.16 Intervertebral disc disorders with radiculopathy, lumbar region (principal); M48.061 Spinal stenosis, lumbar region without neurogenic claudication; M43.16 Spondylolisthesis, lumbar region; M99.63 Osseous and subluxation stenosis of intervertebral foramina of lumbar region; I10 Essential (primary) hypertension; E78.5 Hyperlipidemia, unspecified; F41.9 Anxiety disorder, unspecified; K21.9 Gastro-esophageal reflux disease without esophagitis; Z87.891 Personal history of nicotine dependence; Z79.899 Other long term (current) drug therapy
CPT/HCPCS: 86900; 86901; 80048; 85025; 85610; 85730; 86850; 72100; 36415; 63047; 63048; J2250; J0330; J1030; J2710; J2405; J0690; J3010; J1170; J2704; J2001; J2371